=== PATIENT | female | born 1955 | race Caucasian/White ===

== ENCOUNTER 2023-10-24 05:49 | Inpatient (IN) | payer MEDICARE, BC ==
[2023-10-20 14:52] LABS: BASOPHILS # (AUTO) 0.1 X10'3 (0-0.2); BASOPHILS % (AUTO) 0.7 % (0-1); EOSINOPHILS # (AUTO) 0.1 X10'3 (0-0.9); EOSINOPHILS % (AUTO) 1.1 % (0-6); LYMPHOCYTES % (AUTO) 33.3 % (21-51); MEAN CORPUSCULAR HEMOGLOBIN 32.6 PG (27.0-31.0); MEAN CORPUSCULAR HGB CONC 33.1 g/dL (33.0-36.5); MEAN CORPUSCULAR VOLUME 98.7 FL (78-98); MEAN PLATELET VOLUME 7.8 FL (7.4-10.4); MONOCYTES # (AUTO) 0.7 X10'3 (0-0.9); MONOCYTES % (AUTO) 8.3 % (2-12); NEUTROPHILS # (AUTO) 5.1 X10'3 (1.8-7.7); NEUTROPHILS % (AUTO) 56.6 % (42-75); PRE OP HEMATOCRIT 39.4 % (35.0-45.0); PRE OP HEMOGLOBIN 13.1 g/dL (12.0-16.0); PRE OP PLATELET COUNT 252 X10'3 (140-440); RED CELL DISTRIBUTION WIDTH 14.5 % (11.5-14.5)
[2023-10-20 15:01] LABS: PRE OP PROTIME 10.5 SECONDS (9.0-12.0)
[2023-10-20 15:08] LABS: ALBUMIN 3.7 G/DL (3.4-5.0); ALKALINE PHOSPHATASE 51 IU/L (46-116); BLOOD UREA NITROGEN 15 MG/DL (7-18); CALCIUM 9.3 MG/DL (8.5-10.1); CHLORIDE 102 MMOL/L (99-107); CREATININE 0.79 MG/DL (0.40-0.90); PRE OP ALT 21 U/L (30-65); PRE OP ANION GAP 11 (8-16); PRE OP AST 20 U/L (10-37); PRE OP BILIRUB, TOTAL 0.2 MG/DL (0.0-1.0); PRE OP GLUCOSE 90 MG/DL (70-104); PRE OP POTASSIUM 3.7 MMOL/L (3.4-5.1); PRE OP SODIUM 140 MMOL/L (135-145); TOTAL CARBON DIOXIDE 27.3 MMOL/L (24-32); TOTAL PROTEIN 7.5 G/DL (6.4-8.2); eGFR 73 ML/MIN
[2023-10-20 15:20] LABS: BILIRUBIN,URINE NEGATIVE (Neg); CLARITY,URINE CLEAR (Clear); COLOR,URINE YELLOW (Yellow); GLUCOSE, URINE NEGATIVE (Neg); KETONES,URINE NEGATIVE (Neg); LEUKOCYTE ESTERASE ,URINE TRACE (Neg); NITRITES, URINE NEGATIVE (Neg); OCCULT BLOOD,URINE NEGATIVE (Neg); PH,URINE 7.5 (4.8-8.0); PROTEIN,URINE NEGATIVE (Neg); UROBILINOGEN,URINE 0.2 E.U/dL (0.2-1.0)
[2023-10-20 15:28] LABS: UA COLLECTION TYPE CLN CATCH MIDSTREAM
[2023-10-20 15:29] LABS: RBC,URINE NONE SEEN /HPF (0-2)
[2023-10-20 15:30] LABS: AMORPHOUS PHOSPHATES 2+; BACTERIA,URINE 2+ /HPF (Neg); MUCUS STRANDS NONE SEEN /LPF (Neg); SQUAMOUS EPITHELIAL CELL,UR MODERATE /LPF (FEW)
[2023-10-24] VITALS (23 sets, daily range): BP systolic 89–142; BP diastolic 49–79; PULSE 67–92; RESP 10–19; TEMP 98.3; O2SAT 92–100
[~2023-10-24] VITALS: Ht 162.6 cm; Wt 65.8 kg
[~2023-10-24 05:49] MED LIST: ALEN70TA60 PO; CALC600T26 PO; CHOL500044 PO; CYAN-34 PO; EVOL140P3 SUBCUT; FOLI1TAB27 PO; TAMO20TA4 PO; VENL-191 PO; VENL75TA4 PO; clindamycin-Cleocin 900mg/D5W 50 ML IV ONE; famotidine 20mg tablet PO ONE; gentamicin inj 300 MG in normal saline 100ml IV soln 100 ML IV ONE; ringers solution, lacted 1,000 ML IV SCH
[2023-10-24] MEDS ORDERED: heparin 10,000 units/1 ML INJ ONE (06:56)
[2023-10-24] MEDS ORDERED: gentamicin 40 MG/1 ML inj ONE (06:56)
[2023-10-24] MEDS ORDERED: clindamycin-Cleocin 900mg/D5W 50 ML IV ONE (06:57)
[2023-10-24] MEDS ORDERED: LIDOcaine 1% (10mg/ml) 2ml vial ONE (07:22)
[2023-10-24] MEDS ORDERED: midazolam 1 mg/ML 2ml injection ONE (08:19)
[2023-10-24] MEDS ORDERED: fentaNYL /PF 50mcg/ml 5ml ampule ONE (08:19)
[2023-10-24] MEDS ORDERED: LIDOcaine 2% (20mg/ml) 5ml vial ONE (08:20)
[2023-10-24] MEDS ORDERED: propofol inj 20 ML IV ONE (08:20)
[2023-10-24] MEDS ORDERED: rocuronium 10mg/ml inj IV ONE ×3 (08:20→12:57)
[2023-10-24] MEDS ORDERED: meperidine/PF 25mg/ml syringe IV PRN ×3 (08:30)
[2023-10-24] MEDS ORDERED: morphine 4 MG/ML inj SYRINge IV PRN (08:30)
[2023-10-24] MEDS ORDERED: proCHLORperazine 10 MG/2 ml inj IV PRN (08:30)
[2023-10-24] MEDS ORDERED: ondansetron/PF 4mg/2ml inj IV PRN (08:30)
[2023-10-24] MEDS ORDERED: ringers solution, lacted 1,000 ML IV SCH (08:30)
[2023-10-24] MEDS ORDERED: morphine 2 MG/ML inj. syringe IV PRN (08:30)
[2023-10-24] MEDS ORDERED: nitroGLYCERIN-Tridil 50MG/D5W 250 ML IV PRN (09:05)
[2023-10-24] MEDS ORDERED: nitroGLYCERIN in D5W 50mg/250ml (Tridil) infusion IV ONE (09:07)
[2023-10-24] MEDS ORDERED: sevoflurane 250ml liquid IH ONE (09:07)
[2023-10-24] MEDS ORDERED: acetaminophen 1000 MG/100ml vial IV ONE (09:07)
[2023-10-24] MEDS ORDERED: BUPIVACAINE liposomal/PF 13.3 MG/ML vial IM ONE (11:35)
[2023-10-24] MEDS ORDERED: BUPIVAcaine/PF 2.5mg/ml (0.25%) 10ml vial ONE (11:35)
[2023-10-24] MEDS ORDERED: heparin 1,000unit/ml 10ml vial 10 ML ONE (12:50)
[2023-10-24] MEDS ORDERED: dexamethasone sod phosphate 4mg/ml inj. ONE (12:50)
[2023-10-24] MEDS ORDERED: ondansetron/PF 4mg/2ml inj ONE (12:50)
[2023-10-24] MEDS ORDERED: phenylephrine 10mg/ml inj. -priapism dosing ONE (12:50)
[2023-10-24] MEDS ORDERED: albuterol 60 PUFF/8GM Inhaler (90mcg/1 puff) IH ONE (12:51)
[2023-10-24] MEDS ORDERED: sugammadex 200mg/2ml injection IV ONE (12:51)
[2023-10-24] MEDS ORDERED: naloxone 0.4 mg/ml inj IV PRN (14:05)
[2023-10-24] MEDS: PHENYLephrine 10mg/ml inj. 50 MG in normal saline 250ml IV soln 245 ML IV PRN (14:10)
[2023-10-24 14:28] LABS: FIBRINOGEN 216 MG/DL (177-424); INR 1.2 INR; PROTHROMBIN TIME 12.4 SECONDS (9.0-12.0)
[2023-10-24 14:34] LABS: APTT > 139 SECONDS (22-32)
[2023-10-24] MEDS: HYDROmorphone inj. 0.5 MG/0.5 ML DISP.SYRIN IV PRN ×3 (15:36→23:31)
[2023-10-24] MEDS: potassium CL 20mEq in D5-1/2NS 1,000 ML IV SCH ×2 (17:04→22:50)
[2023-10-24] MEDS ORDERED: niCARDipine-NS 40mg/200ml IVPB 200 ML IV PRN (17:10)
[2023-10-24] MEDS: clindamycin 600mg/D5W 50ml 50 ML IV SCH (19:35)
[2023-10-24 21:19] LABS: BASOPHILS % (AUTO) 0.3 % (0-1); EOSINOPHILS % (AUTO) 0 % (0-6); HEMATOCRIT 32.3 % (35.0-45.0); HEMOGLOBIN 10.6 g/dl (12.0-16.0); LYMPHOCYTES # (AUTO) 0.9 X10'3 (1.1-4.8); LYMPHOCYTES % (AUTO) 7.8 % (21-51); MEAN CORPUSCULAR HEMOGLOBIN 32.7 PG (27.0-31.0); MEAN CORPUSCULAR HGB CONC 32.8 g/dL (33.0-36.5); MEAN CORPUSCULAR VOLUME 99.7 FL (78-98); MEAN PLATELET VOLUME 7.9 FL (7.4-10.4); MONOCYTES # (AUTO) 0.8 X10'3 (0-0.9); MONOCYTES % (AUTO) 6.4 % (2-12); NEUTROPHILS # (AUTO) 10.2 X10'3 (1.8-7.7); NEUTROPHILS % (AUTO) 85.5 % (42-75); PLATELET COUNT 218 X10'3 (140-440); RED BLOOD COUNT 3.24 X10'6 (4.20-5.60); RED CELL DISTRIBUTION WIDTH 14.5 % (11.5-14.5); WHITE BLOOD COUNT 11.9 X10'3 (4.5-11.0)
[2023-10-24] MEDS ORDERED: albumin (Human) 5% 250ml 250 ML IV ONE ×2 (22:30)
[2023-10-24] MEDS ORDERED: albumin (Human) 5% 250ml 500 ML IV ONE (22:35)
[2023-10-25] VITALS (24 sets, daily range): BP systolic 85–115; BP diastolic 45–67; PULSE 72–89; RESP 11–22; O2SAT 86–98
[2023-10-25] MEDS: clindamycin 600mg/D5W 50ml 50 ML IV SCH ×4 (02:19→20:17)
[2023-10-25] MEDS: HYDROmorphone inj. 0.5 MG/0.5 ML DISP.SYRIN IV PRN ×2 (03:10→06:53)
[2023-10-25 04:04] LABS: BASOPHILS % (AUTO) 0.2 % (0-1); EOSINOPHILS % (AUTO) 0 % (0-6); HEMATOCRIT 26.7 % (35.0-45.0); HEMOGLOBIN 8.8 g/dl (12.0-16.0); LYMPHOCYTES # (AUTO) 1.5 X10'3 (1.1-4.8); LYMPHOCYTES % (AUTO) 19.6 % (21-51); MEAN CORPUSCULAR HEMOGLOBIN 32.9 PG (27.0-31.0); MEAN CORPUSCULAR VOLUME 99.6 FL (78-98); MEAN PLATELET VOLUME 7.7 FL (7.4-10.4); MONOCYTES # (AUTO) 0.6 X10'3 (0-0.9); MONOCYTES % (AUTO) 7.7 % (2-12); NEUTROPHILS # (AUTO) 5.4 X10'3 (1.8-7.7); NEUTROPHILS % (AUTO) 72.5 % (42-75); PLATELET COUNT 170 X10'3 (140-440); RED BLOOD COUNT 2.68 X10'6 (4.20-5.60); RED CELL DISTRIBUTION WIDTH 14.6 % (11.5-14.5); WHITE BLOOD COUNT 7.5 X10'3 (4.5-11.0)
[2023-10-25] MEDS: potassium CL 20mEq in D5-1/2NS 1,000 ML IV SCH ×3 (06:05→18:30)
[2023-10-25 06:35] LABS: ALBUMIN 2.8 G/DL (3.4-5.0); ANION GAP 9 (8-16); BLOOD UREA NITROGEN 9 MG/DL (7-18); BUN/CREATININE RATIO 11.5 (10.0-20.0); CALCIUM 6.9 MG/DL (8.5-10.1); CHLORIDE 107 MMOL/L (99-107); CREATININE 0.78 MG/DL (0.40-0.90); GLUCOSE 132 MG/DL (70-104); POTASSIUM 4.3 MMOL/L (3.5-5.1); SODIUM 140 MMOL/L (135-145); TOTAL CARBON DIOXIDE 24.2 MMOL/L (24-32); eCRCL 60 ML/MIN; eGFR 74 ML/MIN
[2023-10-25 07:13] LABS: MAGNESIUM 1.7 MG/DL (1.5-2.4); PHOSPHORUS 3.7 MG/DL (2.3-4.5)
[2023-10-25] MEDS ORDERED: albumin (Human) 5% 250ml 250 ML IV ONE ×2 (08:50→10:00)
[2023-10-25] MEDS ORDERED: HYDROmorphone inj. 0.5 MG/0.5 ML DISP.SYRIN IV PRN (08:55)
[2023-10-25] MEDS ORDERED: naloxone 0.4 mg/ml inj IV PRN (08:55)
[2023-10-25 09:31] LABS: BASOPHILS % (AUTO) 0.2 % (0-1); EOSINOPHILS % (AUTO) 0.1 % (0-6); HEMATOCRIT 28.2 % (35.0-45.0); HEMOGLOBIN 9.3 g/dl (12.0-16.0); LYMPHOCYTES # (AUTO) 2.1 X10'3 (1.1-4.8); LYMPHOCYTES % (AUTO) 18.3 % (21-51); MEAN CORPUSCULAR HEMOGLOBIN 32.8 PG (27.0-31.0); MEAN CORPUSCULAR HGB CONC 32.9 g/dL (33.0-36.5); MEAN CORPUSCULAR VOLUME 99.5 FL (78-98); MEAN PLATELET VOLUME 7.5 FL (7.4-10.4); MONOCYTES # (AUTO) 0.7 X10'3 (0-0.9); MONOCYTES % (AUTO) 6.5 % (2-12); NEUTROPHILS # (AUTO) 8.5 X10'3 (1.8-7.7); NEUTROPHILS % (AUTO) 74.9 % (42-75); PLATELET COUNT 207 X10'3 (140-440); RED BLOOD COUNT 2.83 X10'6 (4.20-5.60); RED CELL DISTRIBUTION WIDTH 14.5 % (11.5-14.5); WHITE BLOOD COUNT 11.3 X10'3 (4.5-11.0)
[2023-10-25] MEDS: HYDROmorph/NS 0.2 mg/ml PCA 100 ML IV SCH ×8 (09:55→23:00)
[2023-10-25] MEDS ORDERED: iohexol 350MG/ML 100ml bottle IV ONE (11:02)
[2023-10-25] MEDS: PHENYLephrine 10mg/ml inj. 50 MG in normal saline 250ml IV soln 245 ML IV PRN ×2 (12:23→21:21)
[2023-10-25] MEDS: furosemide 20 MG/2 ML vial IV SCH ×2 (13:53→20:17)
[2023-10-25 16:09] LABS: MEAN CORPUSCULAR HEMOGLOBIN 32.5 PG (27.0-31.0)
[2023-10-25 16:10] LABS: ALBUMIN 3.4 G/DL (3.4-5.0); ANION GAP 10 (8-16); BLOOD UREA NITROGEN 6 MG/DL (7-18); BUN/CREATININE RATIO 6.9 (10.0-20.0); CALCIUM 7.1 MG/DL (8.5-10.1); CHLORIDE 102 MMOL/L (99-107); CREATININE 0.87 MG/DL (0.40-0.90); GLUCOSE 150 MG/DL (70-104); MAGNESIUM 1.6 MG/DL (1.5-2.4); POTASSIUM 3.6 MMOL/L (3.5-5.1); SODIUM 137 MMOL/L (135-145); TOTAL CARBON DIOXIDE 25.5 MMOL/L (24-32); eCRCL 54 ML/MIN; eGFR 65 ML/MIN
[2023-10-25 16:11] LABS: BASOPHILS % (AUTO) 0.2 % (0-1); EOSINOPHILS % (AUTO) 0 % (0-6); HEMATOCRIT 27.5 % (35.0-45.0); LYMPHOCYTES # (AUTO) 1.5 X10'3 (1.1-4.8); LYMPHOCYTES % (AUTO) 13.3 % (21-51); MEAN CORPUSCULAR HGB CONC 32.6 g/dL (33.0-36.5); MEAN CORPUSCULAR VOLUME 99.6 FL (78-98); MEAN PLATELET VOLUME 7.5 FL (7.4-10.4); MONOCYTES # (AUTO) 0.7 X10'3 (0-0.9); MONOCYTES % (AUTO) 6.3 % (2-12); NEUTROPHILS # (AUTO) 8.9 X10'3 (1.8-7.7); NEUTROPHILS % (AUTO) 80.2 % (42-75); PLATELET COUNT 205 X10'3 (140-440); RED BLOOD COUNT 2.76 X10'6 (4.20-5.60); RED CELL DISTRIBUTION WIDTH 14.5 % (11.5-14.5); WHITE BLOOD COUNT 11.1 X10'3 (4.5-11.0)
[2023-10-25] MEDS ORDERED: magnesium 2GM in 50ml NS 50 ML IV ONE (22:35)
[2023-10-26] VITALS (25 sets, daily range): BP systolic 93–121; BP diastolic 44–65; PULSE 72–95; RESP 12–20; O2SAT 90–98
[2023-10-26] MEDS: HYDROmorph/NS 0.2 mg/ml PCA 100 ML IV SCH ×12 (01:00→23:00)
[2023-10-26] MEDS: clindamycin 600mg/D5W 50ml 50 ML IV SCH ×4 (02:05→20:22)
[2023-10-26 02:53] LABS: ALBUMIN 3.1 G/DL (3.4-5.0); ANION GAP 6 (8-16); BLOOD UREA NITROGEN 4 MG/DL (7-18); BUN/CREATININE RATIO 5.6 (10.0-20.0); CHLORIDE 104 MMOL/L (99-107); CREATININE 0.71 MG/DL (0.40-0.90); GLUCOSE 137 MG/DL (70-104); MAGNESIUM 2.2 MG/DL (1.5-2.4); PHOSPHORUS 2.2 MG/DL (2.3-4.5); POTASSIUM 3.7 MMOL/L (3.5-5.1); SODIUM 138 MMOL/L (135-145); TOTAL CARBON DIOXIDE 28.2 MMOL/L (24-32); eCRCL 66 ML/MIN; eGFR 82 ML/MIN
[2023-10-26 02:55] LABS: BASOPHILS % (AUTO) 0.2 % (0-1); EOSINOPHILS % (AUTO) 0.1 % (0-6); HEMATOCRIT 25.5 % (35.0-45.0); HEMOGLOBIN 8.5 g/dl (12.0-16.0); LYMPHOCYTES # (AUTO) 1.9 X10'3 (1.1-4.8); LYMPHOCYTES % (AUTO) 17.5 % (21-51); MEAN CORPUSCULAR HGB CONC 33.3 g/dL (33.0-36.5); MEAN CORPUSCULAR VOLUME 98.9 FL (78-98); MEAN PLATELET VOLUME 7.7 FL (7.4-10.4); MONOCYTES # (AUTO) 0.9 X10'3 (0-0.9); MONOCYTES % (AUTO) 8.1 % (2-12); NEUTROPHILS # (AUTO) 8.3 X10'3 (1.8-7.7); NEUTROPHILS % (AUTO) 74.1 % (42-75); PLATELET COUNT 187 X10'3 (140-440); RED BLOOD COUNT 2.58 X10'6 (4.20-5.60); RED CELL DISTRIBUTION WIDTH 14.6 % (11.5-14.5); WHITE BLOOD COUNT 11.1 X10'3 (4.5-11.0)
[2023-10-26] MEDS: potassium CL 20mEq in D5-1/2NS 1,000 ML IV SCH ×3 (03:05→19:16)
[2023-10-26] MEDS: PHENYLephrine 10mg/ml inj. 50 MG in normal saline 250ml IV soln 245 ML IV PRN ×2 (04:54→13:25)
[2023-10-26] MEDS: ondansetron/PF 4mg/2ml inj IV PRN (04:59)
[2023-10-26] MEDS: furosemide 20 MG/2 ML vial IV SCH ×2 (07:37→20:23)
[2023-10-26] MEDS ORDERED: potassium phosphate inj 15 MMOL in normal saline 250ml IV soln 250 ML IV ONE (10:00)
[2023-10-26] MEDS: acetaminophen 325mg tablet PO PRN (20:24)
[2023-10-27] VITALS (27 sets, daily range): BP systolic 88–133; BP diastolic 45–71; PULSE 72–89; RESP 12–23; TEMP 99.3–99.7; O2SAT 90–98
[2023-10-27] MEDS: HYDROmorph/NS 0.2 mg/ml PCA 100 ML IV SCH ×9 (01:00→17:00)
[2023-10-27] MEDS: clindamycin 600mg/D5W 50ml 50 ML IV SCH ×4 (02:18→19:14)
[2023-10-27] MEDS: acetaminophen 325mg tablet PO PRN (02:22)
[2023-10-27 03:10] LABS: BASOPHILS % (AUTO) 0.2 % (0-1); EOSINOPHILS % (AUTO) 0.4 % (0-6); HEMOGLOBIN 7.3 g/dl (12.0-16.0); LYMPHOCYTES # (AUTO) 1.6 X10'3 (1.1-4.8); LYMPHOCYTES % (AUTO) 17.6 % (21-51); MEAN CORPUSCULAR HEMOGLOBIN 32.9 PG (27.0-31.0); MEAN CORPUSCULAR HGB CONC 33.3 g/dL (33.0-36.5); MEAN CORPUSCULAR VOLUME 98.7 FL (78-98); MEAN PLATELET VOLUME 7.7 FL (7.4-10.4); MONOCYTES # (AUTO) 0.7 X10'3 (0-0.9); MONOCYTES % (AUTO) 7.6 % (2-12); NEUTROPHILS # (AUTO) 6.6 X10'3 (1.8-7.7); NEUTROPHILS % (AUTO) 74.2 % (42-75); PLATELET COUNT 148 X10'3 (140-440); RED BLOOD COUNT 2.23 X10'6 (4.20-5.60); RED CELL DISTRIBUTION WIDTH 14.3 % (11.5-14.5); WHITE BLOOD COUNT 8.8 X10'3 (4.5-11.0)
[2023-10-27 03:13] LABS: ALBUMIN 2.4 G/DL (3.4-5.0); ANION GAP 3 (8-16); BLOOD UREA NITROGEN 2 MG/DL (7-18); BUN/CREATININE RATIO 3.2 (10.0-20.0); CALCIUM 6.7 MG/DL (8.5-10.1); CHLORIDE 101 MMOL/L (99-107); CREATININE 0.62 MG/DL (0.40-0.90); GLUCOSE 121 MG/DL (70-104); POTASSIUM 3.5 MMOL/L (3.5-5.1); SODIUM 132 MMOL/L (135-145); TOTAL CARBON DIOXIDE 27.6 MMOL/L (24-32); eCRCL 76 ML/MIN; eGFR > 90 ML/MIN
[2023-10-27] MEDS ORDERED: CALCIUM GLUC 1gm/50ml NACL,iso 50 ML IV ONE (03:45)
[2023-10-27] MEDS: PHENYLephrine 10mg/ml inj. 50 MG in normal saline 250ml IV soln 245 ML IV PRN (05:14)
[2023-10-27] MEDS: potassium CL 20mEq in D5-1/2NS 1,000 ML IV SCH ×2 (05:14→17:52)
[2023-10-27] MEDS: furosemide 20 MG/2 ML vial IV SCH ×2 (07:23→19:15)
[2023-10-27 08:39] LABS: PHOSPHORUS 1.4 MG/DL (2.3-4.5)
[2023-10-27] MEDS ORDERED: potassium phosphate inj 30 MMOL in normal saline 250ml IV soln 250 ML IV ONE (08:55)
[2023-10-27] MEDS: venlafaxine 37.5mg tablet PO SCH (09:39)
[2023-10-27] MEDS: venlafaxine XR 75mg capsule (Q24H) PO SCH (09:39)
[2023-10-27] MEDS ORDERED: magnesium hydroxide 30ml (MOM) UD suspension PO ONE ×2 (11:01→11:10)
[2023-10-27] MEDS ORDERED: metoclopramide 5 mg/ml inj IV SCH (14:00)
[2023-10-27] MEDS: ondansetron/PF 4mg/2ml inj IV PRN (19:15)
[2023-10-28] VITALS (24 sets, daily range): BP systolic 94–126; BP diastolic 48–74; PULSE 67–93; RESP 14–24; O2SAT 90–95
[2023-10-28] MEDS: clindamycin 600mg/D5W 50ml 50 ML IV SCH ×4 (02:00→20:00)
[2023-10-28 03:18] LABS: BASOPHILS % (AUTO) 0.4 % (0-1); EOSINOPHILS # (AUTO) 0.1 X10'3 (0-0.9); EOSINOPHILS % (AUTO) 1.3 % (0-6); HEMOGLOBIN 8.7 g/dl (12.0-16.0); LYMPHOCYTES # (AUTO) 1.3 X10'3 (1.1-4.8); LYMPHOCYTES % (AUTO) 18.3 % (21-51); MEAN CORPUSCULAR HEMOGLOBIN 32.5 PG (27.0-31.0); MEAN CORPUSCULAR HGB CONC 33.5 g/dL (33.0-36.5); MONOCYTES # (AUTO) 0.7 X10'3 (0-0.9); MONOCYTES % (AUTO) 9.2 % (2-12); NEUTROPHILS # (AUTO) 5.1 X10'3 (1.8-7.7); NEUTROPHILS % (AUTO) 70.8 % (42-75); PLATELET COUNT 152 X10'3 (140-440); RED BLOOD COUNT 2.68 X10'6 (4.20-5.60); RED CELL DISTRIBUTION WIDTH 14.9 % (11.5-14.5); WHITE BLOOD COUNT 7.2 X10'3 (4.5-11.0)
[2023-10-28 03:20] LABS: ALBUMIN 2.4 G/DL (3.4-5.0); ANION GAP 5 (8-16); BLOOD UREA NITROGEN 4 MG/DL (7-18); BUN/CREATININE RATIO 6.3 (10.0-20.0); CALCIUM 7.2 MG/DL (8.5-10.1); CHLORIDE 101 MMOL/L (99-107); CREATININE 0.63 MG/DL (0.40-0.90); GLUCOSE 112 MG/DL (70-104); POTASSIUM 4.2 MMOL/L (3.5-5.1); SODIUM 135 MMOL/L (135-145); TOTAL CARBON DIOXIDE 29.5 MMOL/L (24-32); eCRCL 75 ML/MIN; eGFR > 90 ML/MIN
[2023-10-28] MEDS ORDERED: digoxin 250mcg/ml 2ml ampule IV ONE ×2 (04:40→11:00)
[2023-10-28] MEDS: HYDROmorph/NS 0.2 mg/ml PCA 100 ML IV SCH ×9 (06:50→17:14)
[2023-10-28 07:34] LABS: PHOSPHORUS 1.7 MG/DL (2.3-4.5)
[2023-10-28] MEDS ORDERED: venlafaxine 37.5mg tablet PO SCH (08:00)
[2023-10-28] MEDS: venlafaxine 37.5mg tablet PO SCH (08:18)
[2023-10-28] MEDS: venlafaxine XR 75mg capsule (Q24H) PO SCH (08:18)
[2023-10-28] MEDS: magnesium hydroxide 30ml (MOM) UD suspension PO SCH (08:18)
[2023-10-28] MEDS: furosemide 20 MG/2 ML vial IV SCH ×2 (08:18→20:00)
[2023-10-28] MEDS ORDERED: sodium phosphate inj. 15 MMOL in dextrose 5%-water 250 ML IV ONE (11:10)
[2023-10-28] MEDS: potassium CL 20mEq in D5-1/2NS 1,000 ML IV SCH (13:41)
[2023-10-28] MEDS: enoxaparin 40mg/0.4ml syringe SUBCUT SCH (20:00)
[2023-10-28] MEDS: metoprolol tartrate 12.5mg (1/2 tablet) PO SCH (20:00)
[2023-10-29] VITALS (19 sets, daily range): BP systolic 88–136; BP diastolic 48–76; PULSE 68–94; RESP 12–28; TEMP 97.4–97.8; O2SAT 66–96
[2023-10-29] MEDS: clindamycin 600mg/D5W 50ml 50 ML IV SCH ×4 (02:00→19:59)
[2023-10-29] MEDS ORDERED: PCA WASTE DOCUMENTATION 1 MG ML MC SCH (02:45)
[2023-10-29 06:14] LABS: BASOPHILS % (AUTO) 0.5 % (0-1); EOSINOPHILS # (AUTO) 0.1 X10'3 (0-0.9); EOSINOPHILS % (AUTO) 1.1 % (0-6); HEMATOCRIT 27.2 % (35.0-45.0); HEMOGLOBIN 9.3 g/dl (12.0-16.0); LYMPHOCYTES # (AUTO) 1.2 X10'3 (1.1-4.8); LYMPHOCYTES % (AUTO) 16.3 % (21-51); MEAN CORPUSCULAR VOLUME 97.1 FL (78-98); MEAN PLATELET VOLUME 8.1 FL (7.4-10.4); MONOCYTES # (AUTO) 0.9 X10'3 (0-0.9); MONOCYTES % (AUTO) 12.7 % (2-12); NEUTROPHILS % (AUTO) 69.4 % (42-75); PLATELET COUNT 184 X10'3 (140-440); RED BLOOD COUNT 2.81 X10'6 (4.20-5.60); RED CELL DISTRIBUTION WIDTH 14.5 % (11.5-14.5); WHITE BLOOD COUNT 7.2 X10'3 (4.5-11.0)
[2023-10-29 06:17] LABS: ALBUMIN 2.5 G/DL (3.4-5.0); ANION GAP 6 (8-16); BLOOD UREA NITROGEN 5 MG/DL (7-18); BUN/CREATININE RATIO 8.1 (10.0-20.0); CALCIUM 7.8 MG/DL (8.5-10.1); CHLORIDE 100 MMOL/L (99-107); CREATININE 0.62 MG/DL (0.40-0.90); GLUCOSE 110 MG/DL (70-104); MAGNESIUM 2.2 MG/DL (1.5-2.4); PHOSPHORUS 1.9 MG/DL (2.3-4.5); POTASSIUM 3.7 MMOL/L (3.5-5.1); SODIUM 133 MMOL/L (135-145); TOTAL CARBON DIOXIDE 27.4 MMOL/L (24-32); eCRCL 76 ML/MIN; eGFR > 90 ML/MIN
[2023-10-29] MEDS: magnesium hydroxide 30ml (MOM) UD suspension PO SCH (08:00)
[2023-10-29] MEDS: furosemide 20 MG/2 ML vial IV SCH ×2 (08:55→20:00)
[2023-10-29] MEDS: HYDROmorph/NS 0.2 mg/ml PCA 100 ML IV SCH (08:55)
[2023-10-29] MEDS: metoprolol tartrate 12.5mg (1/2 tablet) PO SCH ×2 (08:57→19:59)
[2023-10-29] MEDS: venlafaxine 37.5mg tablet PO SCH (08:57)
[2023-10-29] MEDS: potassium CL 20mEq in D5-1/2NS 1,000 ML IV SCH (08:57)
[2023-10-29] MEDS: venlafaxine XR 75mg capsule (Q24H) PO SCH (09:01)
[2023-10-29] MEDS: HYDROcodone/acetaminophen 5mg/325mg tablet PO PRN (19:59)
[2023-10-29] MEDS: enoxaparin 40mg/0.4ml syringe SUBCUT SCH (20:00)
[2023-10-30] VITALS (8 sets, daily range): BP systolic 95–136; BP diastolic 56–76; PULSE 68–90; RESP 14–20; TEMP 97.2–99; O2SAT 92–97
[2023-10-30] MEDS: HYDROcodone/acetaminophen 5mg/325mg tablet PO PRN ×7 (00:22→22:11)
[2023-10-30] MEDS: clindamycin 600mg/D5W 50ml 50 ML IV SCH ×4 (01:08→19:46)
[2023-10-30] MEDS: metoprolol tartrate 12.5mg (1/2 tablet) PO SCH ×2 (08:12→19:48)
[2023-10-30] MEDS: magnesium hydroxide 30ml (MOM) UD suspension PO SCH (08:12)
[2023-10-30] MEDS: venlafaxine 37.5mg tablet PO SCH (08:12)
[2023-10-30] MEDS: furosemide 20 MG/2 ML vial IV SCH ×2 (08:12→19:48)
[2023-10-30] MEDS: venlafaxine XR 75mg capsule (Q24H) PO SCH (08:20)
[2023-10-30] MEDS: enoxaparin 40mg/0.4ml syringe SUBCUT SCH (19:49)
[2023-10-31] VITALS (8 sets, daily range): BP systolic 96–120; BP diastolic 56–69; PULSE 57–83; RESP 14–25; TEMP 97.4–98.2; O2SAT 90–93
[2023-10-31] MEDS: venlafaxine 37.5mg tablet PO SCH (07:45)
[2023-10-31] MEDS: metoprolol tartrate 12.5mg (1/2 tablet) PO SCH ×2 (07:45→19:41)
[2023-10-31] MEDS: HYDROcodone/acetaminophen 5mg/325mg tablet PO PRN ×4 (07:48→21:07)
[2023-10-31] MEDS: magnesium hydroxide 30ml (MOM) UD suspension PO SCH (07:49)
[2023-10-31] MEDS: furosemide 20 MG/2 ML vial IV SCH ×2 (09:00→19:41)
[2023-10-31] MEDS: venlafaxine XR 75mg capsule (Q24H) PO SCH (10:10)
[2023-10-31] MEDS: enoxaparin 40mg/0.4ml syringe SUBCUT SCH (19:42)
[2023-11-01] VITALS (8 sets, daily range): BP systolic 90–125; BP diastolic 52–67; PULSE 72–85; RESP 16–21; TEMP 97.3–98.4; O2SAT 91–93
[2023-11-01] MEDS: HYDROcodone/acetaminophen 5mg/325mg tablet PO PRN ×4 (02:17→21:19)
[2023-11-01 07:42] LABS: GLUCOSE 92 MG/DL (70-104); SODIUM 134 MMOL/L (135-145)
[2023-11-01 07:43] LABS: ALBUMIN 2.2 G/DL (3.4-5.0); ANION GAP 6 (8-16); BLOOD UREA NITROGEN 8 MG/DL (7-18); BUN/CREATININE RATIO 10.7 (10.0-20.0); CALCIUM 8.5 MG/DL (8.5-10.1); CHLORIDE 97 MMOL/L (99-107); CREATININE 0.75 MG/DL (0.40-0.90); MAGNESIUM 1.9 MG/DL (1.5-2.4); POTASSIUM 3.6 MMOL/L (3.5-5.1); PRO BRAIN NATRIURETIC PEPTIDE 5994 PG/ML (0-125); TOTAL CARBON DIOXIDE 31.4 MMOL/L (24-32); eCRCL 63 ML/MIN; eGFR 77 ML/MIN
[2023-11-01] MEDS: metoprolol tartrate 12.5mg (1/2 tablet) PO SCH ×2 (09:04→19:36)
[2023-11-01] MEDS: magnesium hydroxide 30ml (MOM) UD suspension PO SCH (09:04)
[2023-11-01] MEDS: venlafaxine XR 75mg capsule (Q24H) PO SCH (09:05)
[2023-11-01] MEDS: venlafaxine 37.5mg tablet PO SCH (09:05)
[2023-11-01] MEDS: furosemide 20 MG/2 ML vial IV SCH ×4 (09:06→23:25)
[2023-11-01] MEDS: enoxaparin 40mg/0.4ml syringe SUBCUT SCH (19:37)
[2023-11-02] VITALS (8 sets, daily range): BP systolic 93–112; BP diastolic 45–75; PULSE 65–104; RESP 16–25; TEMP 97.1–98.1; O2SAT 90–97
[2023-11-02] MEDS: HYDROcodone/acetaminophen 5mg/325mg tablet PO PRN ×5 (01:06→21:52)
[2023-11-02] MEDS: magnesium hydroxide 30ml (MOM) UD suspension PO SCH (08:00)
[2023-11-02] MEDS: venlafaxine 37.5mg tablet PO SCH (08:43)
[2023-11-02] MEDS: venlafaxine XR 75mg capsule (Q24H) PO SCH (08:43)
[2023-11-02] MEDS: metoprolol tartrate 12.5mg (1/2 tablet) PO SCH ×2 (08:43→19:55)
[2023-11-02] MEDS: furosemide 20 MG/2 ML vial IV SCH ×3 (10:19→23:49)
[2023-11-02] MEDS ORDERED: magnesium Cl slow-release 64mg tablet PO PRN (10:45)
[2023-11-02] MEDS ORDERED: magnesium 4gm in 100ml NS 100 ML IV PRN (10:45)
[2023-11-02] MEDS ORDERED: potassium Cl 20 mEq SR tablet PO PRN (10:45)
[2023-11-02] MEDS ORDERED: potassium Cl 40MEQ/1/2NS 520ml 520 ML IV PRN (10:45)
[2023-11-02] MEDS ORDERED: magnesium 2GM in 50ml NS 50 ML IV PRN (10:45)
[2023-11-02 19:41] LABS: ALBUMIN 2.6 G/DL (3.4-5.0); ANION GAP 7 (8-16); BLOOD UREA NITROGEN 12 MG/DL (7-18); BUN/CREATININE RATIO 13.8 (10.0-20.0); CALCIUM 9.5 MG/DL (8.5-10.1); CHLORIDE 96 MMOL/L (99-107); CREATININE 0.87 MG/DL (0.40-0.90); GLUCOSE 127 MG/DL (70-104); MAGNESIUM 1.9 MG/DL (1.5-2.4); POTASSIUM 3.4 MMOL/L (3.5-5.1); SODIUM 136 MMOL/L (135-145); TOTAL CARBON DIOXIDE 32.9 MMOL/L (24-32); eCRCL 54 ML/MIN; eGFR 65 ML/MIN
[2023-11-02] MEDS: enoxaparin 40mg/0.4ml syringe SUBCUT SCH (19:54)
[2023-11-02] MEDS: K and/or MAG REPLACEMENT MC SCH (20:00)
[2023-11-02] MEDS ORDERED: VENL75CA61 PO (21:11)
[2023-11-02] MEDS ORDERED: VENL37.59 PO (21:11)
[2023-11-02] MEDS: potassium Cl 20 mEq SR tablet PO PRN (21:52)
[2023-11-03 02:00] VITALS: BP 106/60; PULSE 70; RESP 16; TEMP 98.4; O2SAT 95
[2023-11-03] MEDS: potassium Cl 20 mEq SR tablet PO PRN (02:08)
[2023-11-03] MEDS: HYDROcodone/acetaminophen 5mg/325mg tablet PO PRN ×3 (02:08→12:48)
[2023-11-03 07:00] VITALS: BP 113/72; PULSE 80; RESP 18; TEMP 97.7; O2SAT 95
[2023-11-03] MEDS ORDERED: venlafaxine XR 37.5mg cap (Q24H) PO SCH (08:00)
[2023-11-03] MEDS: magnesium hydroxide 30ml (MOM) UD suspension PO SCH (08:00)
[2023-11-03] MEDS: K and/or MAG REPLACEMENT MC SCH (08:00)
[2023-11-03 08:05] LABS: ALBUMIN 2.4 G/DL (3.4-5.0); ANION GAP 6 (8-16); BLOOD UREA NITROGEN 14 MG/DL (7-18); BUN/CREATININE RATIO 16.3 (10.0-20.0); CALCIUM 9.2 MG/DL (8.5-10.1); CHLORIDE 100 MMOL/L (99-107); CREATININE 0.86 MG/DL (0.40-0.90); GLUCOSE 91 MG/DL (70-104); POTASSIUM 4.3 MMOL/L (3.5-5.1); SODIUM 137 MMOL/L (135-145); TOTAL CARBON DIOXIDE 31.5 MMOL/L (24-32); eCRCL 55 ML/MIN; eGFR 66 ML/MIN
[2023-11-03] MEDS: venlafaxine XR 75mg capsule (Q24H) PO SCH (08:06)
[2023-11-03] MEDS: metoprolol tartrate 12.5mg (1/2 tablet) PO SCH (08:07)
[2023-11-03] MEDS: furosemide 20 MG/2 ML vial IV SCH (09:05)
[2023-11-03 11:00] VITALS: BP 102/63; PULSE 74; RESP 14; TEMP 98.7; O2SAT 92
[2023-11-03 12:48] VITALS: RESP 18
== END 2023-11-03 14:02 | disposition home or self-care (01) | DRG 271 ==
LOC: PAS IN 05:49 → CICU 2S 15:28 → PCU 3S 10-29 14:24
PROVIDERS: ADMIT Surgery; ATTEND Surgery
PROC: BW201ZZ Computerized Tomography (CT Scan) of Abdomen using Low Osmolar Contrast (ICD-10-PCS; 2023-10-24)
PROC: 041 Lower Arteries, Bypass (ICD-10-PCS; principal; 2023-10-24 09:07)
PROC: BW211ZZ Computerized Tomography (CT Scan) of Abdomen and Pelvis using Low Osmolar Contrast (ICD-10-PCS; 2023-10-25)
DX: I74.5 Embolism and thrombosis of iliac artery (principal); K56.7 Ileus, unspecified
CPT/HCPCS: 36415; 36430; 71045; 71046; 74174; 75635; 80048; 80053; 81001; 82948; 83735; 83880; 84100; 85025; 85384; 85610; 85730; 86885; 86900; 86901; 86920; 87077; 87081; 87088; 87186; 88300; 93306; 94668; 97110; 97116; 97161; 97530; A4333; A4615; A4618; A6258; A6449; A7000; C1758; C1768; C9290; G0378; J0131; J0610; J1100; J1170; J1580; J1644; J1650; J1940; J2175; J2250; J2370; J2405; J2704; J3010; J3475; J3480; J3490; J7030; J7040; J7050; J7060; J7120; P9016; P9045; Q9967